=== PATIENT | female | born 1945 | race Caucasian/White ===

== ENCOUNTER → 2021-10-13 09:59 | Outpatient (BNVA) | payer MEDICARE, BC, SELFPAY | PROVIDERS: Family Provider Family Medicine; PCP Family Medicine; Visit Provider Internal Medicine Cardiovascular Disease | DX: I20.8 Other forms of angina pectoris (principal); Z20.822 Contact with and (suspected) exposure to COVID-19 | CPT/HCPCS: 85025; 87635 ==

== ENCOUNTER 2021-10-19 09:03 | Observation (INO) | payer MEDICARE, BC, SELFPAY ==
[2021-10-19] VITALS (32 sets, daily range): BP systolic 89–143; BP diastolic 55–92; PULSE 56–68; RESP 16–20; TEMP 36.6–36.8; O2SAT 91–96; BMI 28.0
--- NOTE | 2021-10-19 07:19 | XACV_ITS ---
Exam Room: [employer] Ht: 157 cm Wt: 69 kg BSA: 1.76 m2 Gender: Female : 1945 Any Known Allergies: Other Exam Priority: Routine Procedure(s): Procedure Description: Diagnostic procedure Procedure Description: PCI procedure Procedure Description: Drug Eluting Coronary Stent Procedure Description: PTCA Procedure Description: Coronary Angiography [place] MORE; Diagnostic Cath Status: Elective Diagnostic Findings * Left Main has no disease. * Right Coronary Artery has no disease. * Mid Left Anterior Descending: severe 90% stenosis, LATASHA: 3 flow. * Proximal Circumflex to Distal Circumflex: luminal irregularities 20% stenosis, LATASHA: 3 flow. * 2nd Diagonal: critical 95% stenosis, LATASHA: 3 flow. * Coronary angiography shows left dominance. PCI Status: Elective Interventional Findings * Mid Left Anterior Descendin% stenosis treated with a AB TREK 2.50X12 RX BALLOON, CHANDRAKANT Barragan RICHELLE 3.0X15 CHELSI, and NC Euphora 3.25x8. 0% residual stenosis, LATASHA: 3 flow. Conclusions 1. For worsening of chest pain shortness of breath abnormal stress test patient underwent left heart cath he was noted to have bifurcating mid LAD high-grade 90% stenosis. Small caliber but moderate size diagonal branch was noted with bifurcating disease. Two-wires were crossed one in LAD other in diagonal. LAD was dilated with balloon angioplasty followed by stent placement. After jailing the diagonal vessel keeping wire underneath the stent wel tried to cross into the diagonal branch but we were not able to cross across the stent therefore I pulled wire out of the body from underneath the stent. Despite of our effort I was not able to go back in to the diagonal branch, LATASHA-1 flow was noted int he jailed diagonal branch. Mid LAD was then postdilated with noncompliant balloon. At this point we accepted the result. Patient tolerated procedure well and transferred to [facility].. 2. There is severe coronary artery disease with two vessel disease. 3. Mid Left Anterior Descending was treated with a Balloon, Drug Eluting Stent, and Balloon. Recommendations * 1-Return to inpatient for close monitoring and routine cath care 2-Risk factor modification for secondary prevention 3-Statin and aspirin 81 mg life--long, if tolerated 4-Patient was pre-loaded with 600 mg of Plavix, continue Plavix 75mg p.o. daily for at least one year. We will assess at the end of one year again to continue if further or not 5-Continue optimal medical management 6-Follow up with Dr. Avila in four weeks and your primary care in 10 days. Interventional RX Recommendation: PCI w/o planned CABG Diagnostic RX Recommendation: PCI w/o planned CABG Pressures Phase:Rest AO : 182 / 11 ( 36 ) @ 10:19:00 AM 151 / 82 ( 113 ) @ 10:23:00 AM 131 / 82 ( 106 ) @ 10:25:00 AM 113 / 75 ( 89 ) @ 10:29:00 AM 107 / 67 ( 84 ) @ 10:31:00 AM 133 / 77 ( 101 ) @ 10:35:00 AM Clinical Evaluation EBL: 5mL-10mL Procedural Details Procedure Consent Obtained. Admit Source: In Patient. Pre-Procedure Time Out. Identified patient by full name and date of as verbalized by the patient/guarantor. Does the consent match the physician's order: Yes. Accurate & Complete Informed Consent: Yes. Inpatient/Outpatient History & Physical on Chart: Yes. If H&P is completed, is and addenduem needed: Yes; If yes, is the addendum complete: N/A. Visualize and Verify Site with Patient/Guarantor: N/A. Relevant Radiology Images available: N/A. Pre-op teaching completed and patient verbalized understanding. The risks, benefits, and alternatives of sedation and/or procedure were discussed by physician. The patient agrees to continue. Procedure started. Correct patient, site and procedure confirmed by cath team. PERRLA. 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 Lungs clear x 5 lobes. IV Site on Arrival: 22 gauge in the right forearm. Pre Procedural Pulses: bilateral dorsalis pedis was 3+. Pre Procedural Pulses: bilateral posterior tibial was 3+. Pre Procedural Pulses: bilateral radial was 3+. Oxygen started at 2liters/min via nasal canula. bilateral groins was prepped with chloroprep then draped in the usual sterile fashion. right radial was prepped with chloroprep then draped in the usual sterile fashion. Baseline sample Acquired. HR: 66 BPM. Physician notified. Physician arrived. Jose Alfredo in for scrubbing. Physician scrubbed in. Immediate Pre-Procedure Time Out. Correct Patient: Yes; Correct Procedure: Yes; Correct Site: Yes; Correct Patient Position: Yes; Correct Supplies: Yes; Dried Flammable Prep: Yes; Blood Products Available: N/A;. Lidocaine 1% infiltrated to the right radial. Arterial access obtained. A 5 peruvian TIG catheter in over wire. Catheter inserted over the glide wire. handinjection performed. Multiple views taken of left coronary artery. catheter out. 6 peruvian XB 3 guide catheter was inserted over the wire. [place] guidewire was advanced through the guide catheter to lesion in the mid LAD. [place] guidewire was advanced through the guide catheter to lesion in the diaganol. Inflation number : 1 A AB TREK 2.50X12 RX BALLOON was prepped and advanced across the Mid LAD , then inflated to 8 LIZ for 0:10 seconds. Inflation number: 2 The AB TREK 2.50X12 RX BALLOON was reinflated across the Mid LAD, to 12 LIZ for 0:19 seconds. Balloon out. Inflation Number : 3 A CHANDRAKANT Barragan RICHELLE 3.0X15 CHELSI -Lot Number# [id number] exp date: 07-07-2024 was prepped and advanced across the Mid LAD. The stent was deployed at 14 LIZ for 0:23 seconds. Stent balloon out over wire. Wire out. Wire out. Masonry Supervisor wire inserted. Wendy Blank was relieved by Lindsay Jett RT(R) as monitoring person. Darius Segura was relieved by Noris Jacobson as card writer hand. Inflation number : 4 A LUCIANA Euphora 3.25x8 was prepped and advanced across the Mid LAD , then inflated to 14 LIZ for 0:26 seconds. Inflation number: 5 The NC Euphora 3.25x8 was reinflated across the Mid LAD, to 0 LIZ for 0:10 seconds. Inflation number: 6 The NC Euphora 3.25x8 was reinflated across the Mid LAD, to 14 LIZ for 0:17 seconds. Family updated. Balloon out. Results checked. Masonry Supervisor wire redirected to the Diag. Wire out. Results checked. Guide catheter out. ACT drawn. Results 228 seconds. Therapeutic limits - pre-heparin administration 90-150 seconds and monitoring heparin during a vascular procedure >250 seconds. A TR Band was successful obtaining hemostatsis at the Right Radial artery insertion site. Post Procedure: Pulses reassessed and unchanged. PERRLA. 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 No VTE prophylaxis required. Medication's Wasted: Lidocaine 1% = 18 mL. Medication's Wasted: Nitro = 49.6 mL. Total IV fluids: 197 mL. Contrast type used: Omnipaque 300 mgI/mL, 500 mL bottle. Estimated blood loss: 5mL-10mL. Responsiveness - Normal response to verbal stimuli; alert and oriented, PERRLA. Airway - Unaffected, no intervention required; spontaneous ventilation. Circulation: W/N/L, pulses unchanged. Nausea/Vomiting: No. Procedure completed. Patient transferred by wheelchair to 1st floor. Vital chart was stopped. Access Site Site: Right Radial artery Sheath Size: 6 Fr Hemostasis Method: TR Band Hemostasis Success: Successful Procedure Medications Start: 11:10 AM Stop: 11:10 AM Medication: Versed Amount: 1 mg Route: I.V. Start: 11:10 AM Stop: 11:10 AM Medication: Fentanyl Amount: 50 mcg Route: I.V. Start: 11:12 AM Stop: 11:12 AM Medication: Versed Amount: 1 mg Route: I.V. Start: 11:12 AM Stop: : AM Medication: Fentanyl Amount: 50 mcg Route: I.V. Start: : AM Stop: AM Medication: Nitrogylcerin Amount: 200 mcg Route: I.A. Start: :35 AM Stop: AM Medication: Heparin Amount: 5000 units Route: I.V. Start: :46 AM Stop: AM Medication: Heparin Amount: 3000 units Route: I.V. Start: 12:05 PM Stop: 12:05 PM Medication: Aggrastat 12.5 mg/250 mL Amount: 35 ml Route: I.V. bolus Start: 12:07 PM Stop: 12:07 PM Medication: Fentanyl Amount: 50 mcg Route: I.V. Start: 12:07 PM Stop: 12:07 PM Medication: Versed Amount: 1 mg Route: I.V. Start: 12:11 PM Stop: 12:11 PM Medication: Aggrastat 12.5 mg/250 mL Amount: 12.6 ml/hr Route: I.V. drip Start: 12:27 PM Stop: 12:27 PM Medication: Nitrogylcerin Amount: 200 mcg Route: I.C. Start: 12:39 PM Stop: 12:39 PM Medication: Heparin Amount: 1000 units Route: I.V. Start: 12:39 PM Stop: 12:39 PM Medication: Plavix Amount: 600 mg Route: P.O. Start: 12:41 PM Stop: 12:41 PM Medication: Aspirin Amount: 325 mg Route: P.O. I, the attending physician, have reviewed and verified all procedure medications. Yes, all medications given per verbal order History/Risk Factors Hypertension: Yes Dyslipidemia: Yes Peripheral Arterial Disease (PAD): No Myocardial Infarction ([place]): No Obesity: No Renal Disease: No Tobacco Use: Current/Recent(w/in 1 year) Prior Interventions PCI: No CABG: No Valve Surgery: No Report Signatures Finalized by Janis Avila MD on 10/24/2021 07:51 PM
[2021-10-19] MEDS: diphenhydrAMINE 50 mg Capsule PO (07:45)
[2021-10-19 08:29] LABS: Anion Gap 18.2 (5-19); Blood Urea Nitrogen 18 mg/dL (8-23); Calcium 8.5 mg/dL (8.5-10.5); Carbon Dioxide 19 mmol/L (22-29); Chloride 107 mmol/L (98-107); Creatinine Clr Calc Pharmacy 52.9013; Glucose 121 mg/dL (65-115); Osmolality Calculated 293 mOsm/kg (285-295); Potassium 4.2 mmol/L (3.5-5.1); Sodium 140 mmol/L (136-145)
--- NOTE | 2021-10-19 11:12 | W.PM.OPSUD ---
Surgery/Procedure H&P Update DATE OF PROCEDURE: October 19, 2021 DATE H&P PERFORMED: 10/04/21 H&P UPDATE INFORMATION: I have reviewed H&P completed within last 30 days, I have examined patient prior to procedure and No changes to prior documentation PREOP DIAGNOSIS: Worsening of chest pain suspicious for angina along with shortness of breat PLANNED PROCEDURE: Operation Date: 10/19/21 08:30 Proposed Procedures p Cardiac Catheterization(Left) - Janis Avila MD PATIENT REASSESSED PRIOR TO SEDATION, WITH NO CHANGE NOTED: Yes PHYSICAL EXAM: alert, oriented x 3 and clear to auscultation bilaterally AIRWAY EVAL/ANESTHESIA PLAN: ASA II and Risks, benefits & alternatives of sedation and/or procedure discussed ADDITIONAL INFORMATION: Patient has been explained risk benefit alternative for the procedure, she understand risk for stroke contrast-induced nephropathy, she has been explained risk for urgent emergent bypass surgery patient has been explained risk for transfusion vascular injury. She is a candidate for DAPT. She would like to proceed with it.
--- NOTE | 2021-10-19 13:00 | ECG_ITS ---
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 memorial hospitalPombaiuniversity [email or web address] elyria medical [id number]
[2021-10-19] MEDS: nitroglycerin drip 50 MG/250 ML PREMIX IV (13:22)
[2021-10-19] MEDS: ondansetron 2 mg/ML SDV 2 mL 4 MG IVP (13:35)
--- NOTE | 2021-10-19 14:41 | ECG_ITS ---
[facility] Test Date: 2021-10-19 Pat Name: Jil Edwards Department: Room: 111 Gender: Female Patcher Bowling Ball: : 1945 Requested By: Janis Carey Order Number: [id number] Reading MD: JANIS CAREY Measurements Intervals [place] Rate: 57 P: 48 [place]: 152 QRS: 2 QRSD: 98 T: 53 QT: 438 QTc: 427 Interpretive Statements SINUS BRADYCARDIA INCOMPLETE RIGHT BUNDLE BRANCH BLOCK [90+ ms QRS DURATION, TERMINAL R IN V1/V2, 40+ ms S IN I/aVL/V4/V5/V6] MINIMAL ST DEPRESSION [0.025+ mV ST DEPRESSION] No previous ECG available for comparison Electronically Signed On 10-19-2021 19:54:05 VICE PRESIDENT OF BUSINESS DEVELOPMENT by JANIS CAREY [id number]
--- NOTE | 2021-10-19 15:58 | PC.NURSE ---
patient having chest pain post LHC Dr amlendarez aware and patient to floor with orders for nitro GTT, EKG patient Chest pain 2 Hours post PCi while on Nitro GTT became worse Blood pressure started to decline Dr almednarez notified an EKG was performed Patient was alert to voice, place, time and situation all though appeared lethargic telephone instructions received to stop nitro GTT now give morphine 2 mg IVP patient began to feel better once Nitro Gtt was off for a few moments and was able to get up to BSC with assistance upon returning to Bed patient report chest pain is down form 05/13 to 01/11 at this time Telephone instructions received to start ranolazine 500mg BID first dose now Dr almendarez notified of none administration of morphine
[2021-10-19] MEDS: ranolazine (12HR) 500 mg Tablet PO (16:09)
--- NOTE | 2021-10-19 19:16 | PC.NURSE ---
Shift Note Frequent safety and comfort rounds continue. Orders and/or nursing care completed as indicated. Patient monitored for response to intervention and treatment(s). Education provided includes post angiogram site care. Patient and/or business development representative verbalized understanding. Will continue to monitor.
--- NOTE | 2021-10-19 20:13 | ECG_ITS ---
[facility] Test Date: 2021-10-19 Pat Name: Jil Edwards Department: Room: 111 Gender: Female Chief Of Internal Medicine: : 1945 Requested By: Janis Avila Order Number: [id number] Dragan MD: Bhavana Templeton M.D. Measurements Intervals [place] Rate: 66 P: -12 [place]: 153 QRS: -4 QRSD: 98 T: -10 QT: 413 QTc: 433 Interpretive Statements SINUS RHYTHM INCOMPLETE RIGHT BUNDLE BRANCH BLOCK [90+ ms QRS DURATION, TERMINAL R IN V1/V2, 40+ ms S IN I/aVL/V4/V5/V6] INFERIOR MYOCARDIAL INFARCTION , OF INDETERMINATE AGE [40+ ms Q WAVE AND/OR ST/T ABNORMALITY IN II/aVF] Compared to ECG 10/19/2021 14:41:19 Incomplete right bundle-branch block now present Myocardial infarct finding now present Sinus bradycardia no longer present ST (T wave) deviation no longer present Electronically Signed On 10-21-2021 7:38:53 FINANCIAL AID OFFICER by Bhavana Templeton M.D. [id number]
[2021-10-19] MEDS: morphine 4 mg/mL SDV 1 mL 2 MG IVP (20:35)
[2021-10-19] MEDS: ALPRAZolam 0.5 mg Tablet PO (20:35)
--- NOTE | 2021-10-19 20:39 | PC.NURSE ---
Patient c/o 2/10 chest pain at initial shit assessment. Patient got up to bathroom and c/o 9/10 chest pain. EKG taken. Dr. Avila notified and came to see patient and EKG. Patient now c/o of pain at 7/10. PRN Morphine and Xanax ordered.
--- NOTE | 2021-10-19 23:04 | PC.NURSE ---
Patient is currently resting in bed with eyes closed. Will continue to monitor.
[2021-10-20] VITALS (10 sets, daily range): BP systolic 121–132; BP diastolic 67–84; PULSE 69–108; RESP 18–27; TEMP 36.4–36.8; O2SAT 90–97
[2021-10-20 02:56] LABS: Basophils % 0.2 %; Eosinophils % 0.2 %; Hematocrit 36.6 % (37.0-47.0); Hemoglobin 11.6 g/dL (11.5-15.3); Lymphocytes # 1.4 10^3/uL (0.8-4.8); Lymphocytes % 10.4 %; Mean Corpuscular HGB Conc 31.7 g/dL (30.0-36.0); Mean Corpuscular Hemoglobin 29.8 pg (28.0-34.0); Mean Corpuscular Volume 94.1 fl (81-99); Mean Platelet Volume 10.2 fL (7.4-10.4); Monocytes # 1.3 10^3/uL (0.2-0.9); Monocytes % 9.3 %; Neutrophils # 10.67 10^3/uL (1.8-7.7); Neutrophils % 79.6 %; Nucleated Red Blood Cells % 0 %; Platelet Count 219 10^3/cmm (130-400); Red Blood Count 3.89 10^6/uL (4.1-5.3); Red Cell Distribution Width 14.5 % (12.1-15.1); White Blood Count 13.4 10^3/uL (4.0-10.0)
--- NOTE | 2021-10-20 03:18 | PC.NURSE ---
Patient awakened for vital signs and assessment. Patient does not c/o any pain at this time.
[2021-10-20 03:19] LABS: Anion Gap 15.2 (5-19); Blood Urea Nitrogen 20 mg/dL (8-23); Calcium 8.1 mg/dL (8.5-10.5); Carbon Dioxide 20 mmol/L (22-29); Chloride 108 mmol/L (98-107); Glucose 116 mg/dL (65-115); Osmolality Calculated 292 mOsm/kg (285-295); Potassium 4.2 mmol/L (3.5-5.1); Sodium 139 mmol/L (136-145)
--- NOTE | 2021-10-20 03:40 | PC.NURSE ---
Right wrist site/dressing WNL.
[2021-10-20] MEDS: PARoxetine 20 mg Tablet 10 MG PO (09:47)
[2021-10-20] MEDS: losartan 50 mg Tablet PO (09:47)
[2021-10-20] MEDS: ezetimibe 10 mg Tablet PO (09:47)
[2021-10-20] MEDS: ranolazine (12HR) 500 mg Tablet PO (09:47)
[2021-10-20] MEDS: metoprolol succinate ER (24 HR) 25 mg Tablet 12.5 MG PO (09:48)
[2021-10-20] MEDS: amlodipine 5 mg Tablet PO (09:48)
[2021-10-20] MEDS: clopidogrel 75 mg Tablet PO (09:48)
[2021-10-20] MEDS: isosorbide mononitrate ER 30 mg Tablet PO (09:48)
[2021-10-20 10:21] LABS: Troponin T (5th) Once 746 ng/L (0-10)
--- NOTE | 2021-10-20 12:50 | PC.CHAP ---
Pastoral Care Encounter/Spiritual Assessment Type of Contact [xx] Declined advanced quality engineer visit [] Patient/Family/Request visit [] Outpatient visit [] Follow-up visit [] Physician referral [] Code/Alert [xx] Routine visit [] Staff referral [] Actively dying [] Patient sleeping [] Family support [] [] Out of room [] Palliative care [] [] Receiving care in room [] Pre-surgical visit [] Trauma [] Long length of stay [] ICU visit [] Other: Relational/Emotional Strength [] Patient feels connected with others/family/visitors/staff [] Distress [] Loneliness/isolation [] Abandonment Spirituality of Patient [xx] Person of Tamiko [xx] Attends Cheondoism of their Tamiko [xx] Believes in Prayer [] Reads Bible or Druze materials [] There are Spiritual issues to be addressed Mechanic Interventions [] Prayer [xx] Active listening [xx] Non-anxious presence [] Spiritual/emotional support [] Crisis/trauma care [] Spiritual counseling [] Bereavement support [] Provided bereavement packet [] Provided Bible/devotional materials [] Provided toy/stuffed animal, coloring book to patient or family member [] Provided Communion [] Anointing/Cashion [] Salvation [xx] Completed spiritual assessment [] Other: Impact on Illness or Injury [] Angry [] Fearful [] Anxious [] Often cries [] Exhaustion [] Unable to work [] Unable to attend church [] Unable to walk/stand [] Unable to read [] Unable to drive [] Unable to eat/drink [] Unable to sleep [] Unable to be with family [] Patient intubated [] Other: Summary Son and spouse present. Patient preferred some one of her own tamiko would pray for her so advanced quality engineer visited but did not pray. Time spent with patient 3 minutes
--- NOTE | 2021-10-20 14:13 | USCV_ITS ---
Jerry Jil Age: 76 Gender: F : 1945 Exam Date: 10/20/2021 14:37 Ordering Phys: Janis Avila MD ([email or web address]) Technologist: BENITA Exam Location: [facility] [place] Indication: CAD BP: 132 / 82 HR: 76 Rhythm: Sinus Technical Quality: Adequate MEASUREMENTS (Male / Female) Normal Values 2D ECHO LV Diastolic Diameter PLAX 3.5 cm 4.2 - 5.9 / 3.9 - 5.3 cm LV Systolic Diameter PLAX 2.6 cm IVS Diastolic Thickness 1.8 cm 0.6 - 1.0 / 0.6 - 0.9 cm IVS Systolic Thickness 1.5 cm LVPW Diastolic Thickness 1.5 cm 0.6 - 1.0 / 0.6 - 0.9 cm LVPW Systolic Thickness 1.7 cm RV Chamber Size 1.9 cm LVOT Diameter 2.0 cm LV Ejection Fraction 2D Teich 49.7 % LV Ejection Fraction MOD 2C 69.9 % LV Ejection Fraction 2C AL 70.6 % LA Diameter 3.0 cm LA Width 3.6 cm LA Height 3.7 cm RA Width 2.5 cm RA Height 3.1 cm Aorta at Sinotubular Diameter 2.5 cm M-MODE Aortic Annulus Diameter 3.6 cm LA Ao Ratio MM 0.9 MV E Point Septal Separation 0.6 cm DOPPLER AV Peak Velocity 153.0 cm/s LVOT Peak Velocity 131.0 cm/s AV Area Cont Eq vti 2.5 cm squared AV Area Cont Eq pk 2.7 cm squared MV Area PHT 3.4 cm squared Mitral E to A Ratio 0.8 MV E' Velocity 37.0 cm/s Mitral E to MV E' Ratio 9.6 Mitral E to LV E' Lateral Ratio 9.9 Mitral E to LV E' Septal Ratio 9.3 TR Peak Velocity 360.0 cm/s TR Peak Gradient 51.8 mmHg TV Peak E Velocity 42.0 cm/s Right Atrial Pressure 3.0 mmHg Pulmonary Artery Systolic Pressu 54.8 mmHg PV Peak Velocity 103.0 cm/s RV Acceleration Time 0.2 s RV Ejection Time 0.4 s RV AcT/ET 0.5 FINDINGS Left Ventricle Normal left ventricular cavity size. Normal left ventricular systolic function. No regional wall motion abnormalities. Left ventricular ejection fraction is estimated at 60%. Grade I/IV diastolic dysfunction (abnormal relaxation filling pattern), normal to mildly elevated filling pressures. Right Ventricle The right ventricle is normal in size and function. RVSP could not be calculated due to incomplete tricuspid regurgitation velocity profile. Right Atrium The right atrium is normal in size. Left Atrium The left atrium is normal in size. Mitral Valve Structurally normal mitral valve without significant stenosis or prolapse. There is no mitral regurgitation. Aortic Valve Structurally normal aortic valve without significant sclerosis or stenosis. There is no aortic regurgitation. Tricuspid Valve Structurally normal tricuspid valve without significant stenosis or regurgitation. Pulmonic Valve Structurally normal pulmonic valve without significant stenosis. There is no pulmonic regurgitation. Pericardium Normal pericardium without effusion. Aorta Normal ascending aorta dimension. CONCLUSIONS 1-Normal left ventricular cavity size. Normal left ventricular systolic function. No regional wall motion abnormalities. Left ventricular ejection fraction is estimated at 60%. Grade I/IV diastolic dysfunction (abnormal relaxation filling pattern), normal to mildly elevated filling pressures. 2-There is no pericardial effusion. 3-No significant valve abnormalities. 4-The right ventricle is normal in size and function. RVSP could not be calculated due to incomplete tricuspid regurgitation velocity profile. 5-Right atrial pressure is around 5 mm of mercury. 6-There are no prior echocardiogram studies to compare. Janis Avila MD (Electronically Signed) Final Date: 21 October 2021 15:56 S
[2021-10-20 15:34] LABS: Troponin T (5th) Once 633 ng/L (0-10)
--- NOTE | 2021-10-20 17:15 | PM.SDS ---
Short Stay Summary Providers Date of Admit/Discharge: 10/20/21 Attending Provider: Janis Avila MD Primary Care Provider: Prasanna Ayala Chief Complaint: [id number] HPI History of Present Illness Jil Edwards is a 76 year old female past medical history significant for tobacco abuse hypertension hyperlipidemia for worsening of chest pain along with shortness of breath underwent left heart cath was noted to have mid LAD stenosis bifurcating with moderate size caliber diagonal vessel. 2 wire technique was adopted due to high burden of plaque diagonal branch was jailed sluggish flow was noted. Despite of our efforts we were not able to cross back into the diagonal vessel however since there was reasonable flow in the diagonal jailed vessel and we had a good result in mid LAD, we accepted the result. 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 Patient tolerated it well. Medicine were optimized troponin peaked at 700 and dropped down to 600. She is walking around without any difficulty and would like to go home. Left knee ejection fraction is normal by echocardiogram. She is being discharged home. After 1 month and planning to stop ranolazine. Home Meds/Allergies Home Medications and Allergies Home Medications Medication Instructions Recorded Confirmed Type amlodipine 5 mg tablet 5 mg PO DAILY 07/13/21 10/19/21 History aspirin 81 mg tablet,delayed 81 mg PO DAILY 07/13/21 10/19/21 History release losartan 50 mg tablet 50 mg PO DAILY 07/13/21 10/19/21 History nitroglycerin 0.4 mg sublingual 0.4 mg SUBLINGUAL Q5M PRN 07/13/21 10/19/21 History tablet omeprazole 20 mg capsule,delayed 20 mg PO DAILY 07/13/21 10/19/21 History release paroxetine HCl 10 mg tablet 10 mg PO DAILY 07/13/21 10/19/21 History Allergies Allergy/AdvReac Type Severity Reaction Status Date / Time lorazepam [From Ativan] Allergy Unknown Unknown Verified 07/13/21 09:21 meloxicam Allergy Unknown Unknown Verified 07/13/21 09:21 Hxirjhv-IHE-UmR Reductase Allergy Unknown Unknown Verified 07/13/21 09:21 Inhibitor [Atodzio-Geb-Ror Reductase Inhibitor] PFSH Acute PFSH: Medical History HTN (hypertension) Hyperlipidemia Surgical History History of loop recorder Vitals/I&O/Wt Last Vital Signs Temp 97.5 F L 10/20/21 08:31 Pulse 108 H 10/20/21 16:47 Resp 20 H 10/20/21 11:56 BP 132/82 10/20/21 11:56 Pulse Ox 97 10/20/21 16:47 10/20/21 10/20/21 10/20/21 06:59 14:59 22:59 Intake Total 300 / 304.9 Balance 300 / 304.9 Weight last 48 hrs Weight 153 lb Physical Exam Narrative: EXAM NARRATIVE: GENERAL: Patient is alert, awake and oriented x3. NECK: No jugular vein distension. HEENT: No cyanosis. No icterus. No pallor. HEART: Regular S1 and S2. No murmur, rub or gallop. LUNGS: Clear to auscultate bilaterally. ABDOMEN: Soft, nontender and nondistended. Positive bowel sounds. No guarding, rebound or tenderness. CENTRAL NERVOUS SYSTEM: Grossly nonfocal. EXTREMITIES: Lower extremities without edema bilaterally. Hospital Course Admission Diagnoses As above. 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 echo complete * [id number] Routine Ultrasound 10/20/21 14:13 Taken Discharge Plan Discharge Patient Disposition: Home Condition: Stable Prescriptions: New ranolazine 500 mg Tablet Extended Release 12 Hr 500 mg PO BID Qty: 60 RF: 2 pantoprazole [Protonix] 40 mg tablet,delayed release (DR/EC) 40 mg PO DAILY Qty: 90 RF: 2 clopidogrel 75 mg Tablet 75 mg PO DAILY Qty: 90 RF: 4 Continued aspirin [Adult Low Dose Aspirin] 81 mg tablet,delayed release (DR/EC) 81 mg PO DAILY RF: 0 paroxetine HCl [Paxil] 10 mg tablet 10 mg PO DAILY RF: 0 amlodipine 5 mg tablet 5 mg PO DAILY RF: 0 nitroglycerin [Nitrostat] 0.4 mg tablet, sublingual 0.4 mg sublingual Q5M PRN (Reason: Chest Pain) RF: 0 losartan 50 mg tablet 50 mg PO DAILY RF: 0 ezetimibe [Zetia] 10 mg tablet 10 mg PO DAILY Qty: 90 RF: 3 isosorbide mononitrate 30 mg tablet extended release 24 hr 45 mg PO DIRECTED Qty: 135 RF: 3 metoprolol succinate 25 mg tablet extended release 24 hr 12.5 mg PO DAILY Qty: 45 RF: 3 Discontinued omeprazole 20 mg capsule,delayed release(DR/EC) 20 mg PO DAILY RF: 0 Discharge Orders: Discharge Order (Routine); Ordered 10/20/21 Ordered By: Janis Avila Discharge Diet: Cardiac Discharge Activity: Increase activity as tolerated Patient Instructions: Coronary Angioplasty (DC), Opioid Safety Activity Restrictions/Additional Instructions: Follow-up with Ms. Vanessa Richey in 7 days. Follow-up with Dr. Avila in 4 to 6 weeks. 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
== END 2021-10-20 17:47 | disposition home or self-care (01) ==
LOC: CSU 09:03
PROVIDERS: Admitting Provider Internal Medicine Cardiovascular Disease; PCP Family Medicine; Visit Provider Internal Medicine Cardiovascular Disease
DX: I25.10 Atherosclerotic heart disease of native coronary artery without angina pectoris (principal); I10 Essential (primary) hypertension; E78.5 Hyperlipidemia, unspecified; Z79.82 Long term (current) use of aspirin
CPT/HCPCS: 36415; 80048; 84484; 85025; 85347; 93005; 93306; 93454; C1725; C1769; C1874; C1887; C1894; C9600; G0378; J1644; J2250; J2270; J2405; J3010; J3246; J3490; J7030; Q0163; Q9967

== ENCOUNTER 2021-11-30 07:35 | Outpatient (CLI) | payer MEDICARE, BC, SELFPAY ==
[2021-11-30 07:53] VITALS: BMI 27.6
[2021-11-30 07:55] VITALS: BP 160/108; PULSE 68; RESP 16; TEMP 36.6; O2SAT 96
--- NOTE | 2021-11-30 08:11 | W.PM.OPSUD ---
Surgery/Procedure H&P Update DATE OF PROCEDURE: November 30, 2021 DATE H&P PERFORMED: 11/06/22 CHANGES TO PREVIOUS DOCUMENTATION: None PREOP DIAGNOSIS: ICM end of life PRIMARY INDICATION FOR PROCEDURE: ICM end of life PLANNED PROCEDURE: Operation Date: 11/30/21 08:30 Proposed Procedures p Loop Recorder Removal(Left) - Keely Ni MD
--- NOTE | 2021-11-30 10:13 | P.OP_ITS ---
Operative Report Date of procedure: November 30, 2021 Pre-op diagnosis: Preop Diagnosis ICM end of life Procedure: Original Note: Operative Report Date of procedure: November 30, 2021 Pre-op diagnosis: Preop Diagnosis ? implantable satellite project site monitor end-of-life Post-op diagnosis: Same Procedure done: Explantation of the implantable satellite project site monitor Specimens removed/disposition: Ange [id number] Serial # [id number] Make-Medtronic Procedure: LOCATION: Cardiac Catheterization Laboratory REFERRING PROVIDER: Dr. Garcia PREOPERATIVE DIAGNOSIS: Recurrent syncope. POSTOPERATIVE DIAGNOSIS: same ESTIMATED BLOOD LOSS: None COMPLICATIONS: None.? BRIEF HISTORY: This is a 65-year-old white female with a history of recurrent syncope, had an ICM placement at the [facility] in [facility], many years ago. .? Device has reached end-of-life.? Patient wanted to have it removed.? PROCEDURE:? The procedure was explained to the patient in detail with the risks and benefits. The patient understood this well and consented to proceed. The patient was brought to the Cardiac [facility] Manager. The left side of the neck and the precordial region were cleaned and draped in a sterile fashion. 1% Xylocaine was used as local anesthetic agent.? Patient was given 2 gm of Keflex by mouth, half an hour prior to the procedure A 1/3 inch long incision was made at the previous implantation scar. By sharp and blunt dissection, the satellite project site monitor pocket was accessed. The device was delivered from the pocket.? Complete hemostasis was achieved.? The skin was approximated with Steri-Strips EXPLANTED DEVICE: Reveal LINQ Model number: [id number] Serial number: [id number] Make: Medtronic Pressure dressing was applied over the insertion site. The patient was transferred to the medical floor in stable condition. ?
== END 2021-11-30 09:17 | disposition home or self-care (01) ==
PROVIDERS: PCP Family Medicine; Visit Provider Internal Medicine Cardiovascular Disease
PROC: (CPT 33286; principal; 2021-11-30 08:30)
DX: Z45.09 Encounter for adjustment and management of other cardiac device (principal); I25.119 Atherosclerotic heart disease of native coronary artery with unspecified angina pectoris; I10 Essential (primary) hypertension; E78.5 Hyperlipidemia, unspecified; Z79.82 Long term (current) use of aspirin; Z87.891 Personal history of nicotine dependence
CPT/HCPCS: 33286